=== PATIENT | male | born 1980 | race Caucasian/White ===

== ENCOUNTER 2018-06-06 23:49 | Emergency (ER) | payer OTHER ==
[~2018-06-06] VITALS: Ht 200.7 cm; Wt 99.8 kg
[~2018-06-06 23:49] MED LIST: Bactrim Ds Tab1 EACH PO; Keflex500 MG PO
[2018-06-07 00:05] LABS: Calcium, Ionized (POC) 1.15 mmol/L (1.10-1.46); Chloride (POC) 104 mmol/L (98-108); Creatinine (POC) 0.8 mg/dL (0.8-1.3); Glucose (ISTAT POC) 119 mg/dL (70-99); Hemoglobin (POC) 11.9 g/dL (13.5-17.5); Potassium (POC) 3.9 mmol/L (3.5-5.5); Sodium (POC) 140 mmol/L (135-148); Total CO2 (POC) 24 mmol/L (21-32)
== END 2018-06-07 00:22 | disposition home or self-care (01) ==
LOC: ER 23:49
PROVIDERS: Emergency Medicine
DX: F15.129 Other stimulant abuse with intoxication, unspecified (principal); F17.210 Nicotine dependence, cigarettes, uncomplicated; K72.90 Hepatic failure, unspecified without coma; Z86.19 Personal history of other infectious and parasitic diseases
CPT/HCPCS: 80047; 85014; 99285

== ENCOUNTER 2020-12-18 11:05 | Emergency (ER) | payer OTHER ==
[~2020-12-18] VITALS: Ht 188 cm; Wt 99.8 kg
== END 2020-12-18 11:20 | disposition home or self-care (01) ==
LOC: ER 11:05
DX: F29 Unspecified psychosis not due to a substance or known physiological condition (principal); F15.90 Other stimulant use, unspecified, uncomplicated; F17.210 Nicotine dependence, cigarettes, uncomplicated
CPT/HCPCS: 99283

== ENCOUNTER 2023-07-02 17:51 | Emergency (ER) | payer SELFPAY ==
[~2023-07-02] VITALS: Ht 193 cm; Wt 79.4 kg
[2023-07-02] MEDS ORDERED: AMOCLA875 PO (18:16)
== END 2023-07-02 18:27 | disposition home or self-care (01) ==
LOC: ER 17:51
DX: S61.451A Open bite of right hand, initial encounter (principal); F17.210 Nicotine dependence, cigarettes, uncomplicated; W54.0XXA Bitten by dog, initial encounter
CPT/HCPCS: 99283